=== PATIENT | female | born 1935 | race Caucasian/White ===

== ENCOUNTER 2022-06-17 16:34 | Inpatient (IN) | payer BC ==
[~2022-06-17] VITALS: Ht 165.1 cm; Wt 54.4 kg
--- NOTE | 2022-06-17 16:38 | NUR ---
BIB [facility], the ER is saturated and there are no beds. Pt is waiting in the hallway in the EMS gurney.
[2022-06-17] MEDS ORDERED: IV NORMAL SALINE 1000 ML BAG IV ONE (16:45)
[2022-06-17] MEDS ORDERED: ACETAMINOPHEN 325 MG TABLET PO ONE (16:45)
--- NOTE | 2022-06-17 16:50 | NUR ---
Per EMS patient lives alone and was found on the floor by her neighbor. Per report pt's recently and she lives alone and her neighbor checks on her. Pt does not remember what happened or how she ended up on the floor. No reported or signs of trauma noted. Pt arrives alert to her name. Pt is still waiting in the hallway in the EMS gurney as there are no beds.
--- NOTE | 2022-06-17 17:00 | NUR ---
Pt is in the ER hallway, unable to place on cont monitor.
[2022-06-17 17:05] LABS: HEMATOCRIT 43.1 % (31.2-41.9); MEAN CORPUSCULAR HEMOGLOBIN 31.4 uug (24.7-32.8); MEAN CORPUSCULAR VOLUME 94.6 fL (75.5-95.3); PLATELET COUNT (AUTO) 375 K/uL (179-408)
[2022-06-17 17:25] LABS: CARBON DIOXIDE 28 mmol/L (21-32); CHLORIDE 98 mmol/L (98-107); GLUCOSE 88 mg/dL (74-106); POTASSIUM 3.6 mmol/L (3.5-5.1); UREA NITROGEN, BLOOD 23 mg/dL (7-18)
[2022-06-17 17:32] LABS: ETHANOL < 3 MG/DL (0-0)
[2022-06-17 17:39] LABS: THYROID STIMULATING HORMONE 17.607 mIU/mL (0.358-3.740)
[2022-06-17 17:46] LABS: ALANINE AMINOTRANSFERASE 40 U/L (14-59); ALKALINE PHOSPHATASE 106 U/L (50-136); ASPARTATE AMINOTRANSFERASE 118 U/L (15-37); BILIRUBIN,DIRECT 0.6 mg/dL (0.0-0.2); BILIRUBIN,TOTAL 3.1 mg/dL (0.2-1.0); TOTAL PROTEIN, SERUM 8.4 g/dL (6.4-8.2)
[2022-06-17 18:40] LABS: ACETAMINOPHEN < 2.0 ug/mL (10-30)
[2022-06-17] MEDS ORDERED: ASPIRIN 81 MG TAB.CHEW PO ONE (20:15)
[2022-06-17] MEDS ORDERED: MORPHINE SULFATE 2 MG/1 ML DISP.SYRIN IV PRN (21:30)
[2022-06-17] MEDS ORDERED: ONDANSETRON 4 MG/2 ML VIAL IV PRN (21:30)
[2022-06-17] MEDS ORDERED: ASPIRIN 81 MG TAB.CHEW ONE (22:31)
--- NOTE | 2022-06-17 22:42 | NUR ---
Patient refused tylenol. Denies pain
--- NOTE | 2022-06-17 23:28 | NUR ---
Patient able to tolerate PO
--- NOTE | 2022-06-18 00:32 | NUR ---
per Bina TOWNSENDsupervisor last model department, no TELE beds available at the moment. Patient will stay in ER until bed is available. ER charting will be done
--- NOTE | 2022-06-18 05:15 | NUR ---
Luzmaria RN called, patient will be transfered to TELE room 308. Will call me once RN is ready for report.
--- NOTE | 2022-06-18 06:11 | NUR ---
perineal care done.
--- NOTE | 2022-06-18 06:21 | NUR ---
called 3rd floor to give report, RN will call back
[2022-06-18 07:09] LABS: HEMATOCRIT 37.8 % (31.2-41.9); MEAN CORPUSCULAR HEMOGLOBIN 31.4 uug (24.7-32.8); MEAN CORPUSCULAR VOLUME 94.1 fL (75.5-95.3); PLATELET COUNT (AUTO) 347 K/uL (179-408)
--- NOTE | 2022-06-18 07:09 | NUR ---
Pt. admitted to TELE room 308 , under care of Dr. Jhaveri Belongs List completed Luzmaria RN aware of patient's arrival
[2022-06-18 07:45] LABS: THYROID STIMULATING HORMONE 14.25 mIU/mL (0.358-3.740)
[2022-06-18 07:59] LABS: BILIRUBIN,TOTAL 2.4 mg/dL (0.2-1.0); MAGNESIUM 1.9 mg/dL (1.8-2.4); PHOSPHOROUS 3.5 mg/dL (2.5-4.9); TOTAL PROTEIN, SERUM 6.4 g/dL (6.4-8.2)
[2022-06-18 08:00] VITALS: BP 150/68
--- NOTE | 2022-06-18 08:25 | NUR ---
PT received with l habd hematoma and r leg wound to peters and rash like leisin to right lower extremity..IV is disloged and patient is confused and was trying to get oob. Pt has dry blood on her right lower extremity, Charge nurse informed. PtRemoved her gown and ask for her black and whit bouse. Reorinted patient and cleanse right leg an. #22 G saline lock placed and resume IVF as ordered. ppT REORIENTED TO PLACE AND TIME. Mitten applied to B/L hands. Safefty maintained. Bed is in lowest position.
[2022-06-18 08:27] LABS: CREATININE 0.9 mg/dL (0.6-1.3); POTASSIUM 3.3 mmol/L (3.5-5.1)
--- NOTE | 2022-06-18 09:18 | NUR ---
Critical lab value reported by lab ([facility]). Troponin [address] Patiño and no new order received.
[2022-06-18] MEDS: POTASSIUM CHLORIDE 50 ML IV SCH ×2 (10:40→12:17)
[2022-06-18] MEDS: PANTOPRAZOLE SODIUM 40 MG TABLET.DR PO SCH (10:55)
[2022-06-18 11:58] VITALS: BP 152/67
--- NOTE | 2022-06-18 12:09 | NUR ---
Pt. was admitted from ER after having fall at home. Pt. is confused at her baseline. Able to make the need known. Incontinent of both bowl and bladder. No c/o pain. compliance with the care give. No acute distress noted. Body check done and all finding recorded. Will keep monitoring the pt.
[2022-06-18] MEDS: ENOXAPARIN SODIUM 60 MG/0.6 ML DISP.SYRIN SQ SCH ×2 (14:14→23:59)
[2022-06-18 16:06] VITALS: BP 147/67
--- NOTE | 2022-06-18 16:48 | NUR ---
Contacted Rose (pt.'s step daughter) who has the document for code status and she said she will fax it to us. Notified her since we do not have the code status document we have to place the pt. on full code till we receive it. Still waiting for Rose to fax the document.
[2022-06-18 17:17] LABS: *BILIRUBIN,URIN NEGATIVE (NEGATIVE); *CLARITY,URINE CLEAR (CLEAR); *COLOR,URINE DARK YELLOW (YELLOW); *KETONES,URINE TRACE (NEGATIVE); LEUKOCYTE ESTERASE ,URINE 1+ (NEGATIVE); NITRITE, URINE POSITIVE (NEGATIVE); PH,URINE 5.5 (5.0-8.0); UGLUCOSE NEGATIVE (NEGATIVE)
[2022-06-18 17:24] LABS: *CREATININE,URINE 147.9 mg/dL (30-125); *URINE TOTAL PROTEIN RANDOM 60.1 mg/dL (<150/24HR)
[2022-06-18 17:42] LABS: *BLOOD, URINE TRACE (NEGATIVE)
[2022-06-18] MEDS: IV NS 1000 ML 1,000 ML IV PRN (18:16)
[2022-06-18 20:00] VITALS: BP 126/66
[2022-06-18] MEDS ORDERED: DOCUSATE SODIUM 250 MG CAPSULE PO SCH (21:00)
[2022-06-18] MEDS: DOCUSATE SODIUM 100 MG CAPSULE PO SCH (21:57)
[2022-06-18 22:38] LABS: BACTERIA,URINE MODERATE /HPF (NONE SEEN); SQUAMOUS EPITHELIAL CELL,UR FEW /HPF (NONE SEEN)
--- NOTE | 2022-06-18 23:30 | NUR ---
Dr Patiño informed of patient's agitation restlessness. Obtain orders to administer one time dose of Serroqul at this time.iv out BP 169/
[2022-06-18] MEDS ORDERED: QUETIAPINE FUMARATE 25 MG TABLET PO STA (23:35)
[2022-06-18] MEDS ORDERED: QUETIAPINE FUMARATE 25 MG TABLET PO ONE (23:45)
--- NOTE | 2022-06-19 00:22 | NUR ---
pt manipulated mitten and disloge iv r hand Pressure applied to site. Pt is confused and attempting to get out of bed with side rails up Seroqel administered as ordered.
--- NOTE | 2022-06-19 00:27 | NUR ---
REPEATED BP 147/69, AWAKE AND IS IN NO DIDTRESS. SPEECH IS CLEAR. PT REMAINS CONFUSED.
--- NOTE | 2022-06-19 02:42 | NUR ---
Patient is asleep. No adverse reaction from meds given this shift.
[2022-06-19 07:46] LABS: CREATININE 0.6 mg/dL (0.6-1.3)
[2022-06-19] MEDS: PANTOPRAZOLE SODIUM 40 MG TABLET.DR PO SCH (08:56)
[2022-06-19] MEDS: ENOXAPARIN SODIUM 60 MG/0.6 ML DISP.SYRIN SQ SCH (08:57)
[2022-06-19] MEDS: POTASSIUM CHLORIDE 10 MEQ, LIDOCAINE-MPF 1% 1 ML in IV DEXTROSE 5% 100 ML IV SCH ×4 (10:08→13:34)
[2022-06-19 11:20] VITALS: BP 157/77
--- NOTE | 2022-06-19 11:36 | NUR ---
SW consult requested to assess living situation. Patient is an 87-year-old female who was admitted to the hospital for NSTEMI and possible syncope. Patient is alert and oriented X2. Patient appears confused and disoriented and presents with anxious mood and congruent affect. SW spoke to the patients stepdaughter, Cristiana Wedron ([phone]) over the phone and she states the [place] [id number] [address]. Cristiana Jones ([phone]) states the patient does not have any medical equipment at home, is not driving, and recently had home health services set up. Cristiana Jones ([phone]) denies the patient has a history of substance abuse and there is no toxicology report. Cristiana Jones ([phone]) denies the patient has a history of psychiatric diagnosis. ROLF made an APS report Intake ID [id number] for self-neglect and placed a copy in the patients chart. Cristiana Jones ([phone]) states she is open to the patient going to a SNF and SW informed case operator, Nathan and charge nurse, Tete.
[2022-06-19] MEDS: CEFTRIAXONE 1 G in IV DEXTROSE 5% 50 ML IV SCH (11:46)
[2022-06-19 15:00] VITALS: BP 113/56
[2022-06-19 20:00] VITALS: BP 118/56
--- NOTE | 2022-06-19 20:20 | NUR ---
1 unit of PRBC transfused. VSS. No adverse reaction noted. Will continue to monitor.
[2022-06-19] MEDS: DOCUSATE SODIUM 100 MG CAPSULE PO SCH (20:50)
[2022-06-20] MEDS: IV NS 1000 ML 1,000 ML IV PRN (01:22)
[2022-06-20 04:00] VITALS: BP 126/62
[2022-06-20] MEDS: LEVOTHYROXINE SODIUM 75 MCG TABLET PO SCH (06:23)
[2022-06-20] MEDS: PANTOPRAZOLE SODIUM 40 MG TABLET.DR PO SCH (06:23)
[2022-06-20] MEDS: ENOXAPARIN SODIUM 40 MG/0.4 ML DISP.SYRIN SQ SCH (09:06)
[2022-06-20] MEDS: CEFTRIAXONE 1 G in IV DEXTROSE 5% 50 ML IV SCH (11:24)
--- NOTE | 2022-06-20 11:59 | NUR ---
WOUND CARE CONSULT: PT PRESENTS WITH MULTIPLE PRESSURE ULCERS (DEEP TISSUE INJURIES), PRESENT ON ADMISSION. RECOMMENDATIONS MADE FOR SKIN PROTECTION AND WOUND CARE. DISCUSSED WITH NURSING STAFF. IN AGREEMENT WITH PLAN OF CARE. Addendum: 06/20/22 at 1204 by INGRID VALLECILLO RN Amended: Links added.
[2022-06-20 12:00] VITALS: BP 136/59
[2022-06-20] MEDS ORDERED: REMEDY ESSENTIAL ZINC PASTE 113 GM TOP PRN (12:15)
[2022-06-20 16:00] VITALS: BP 135/48
[2022-06-20] MEDS: ENSURE ENLIVE (VAN) 240 ML LIQUID PO SCH (18:48)
[2022-06-20 20:00] VITALS: BP 111/57
[2022-06-20] MEDS: DOCUSATE SODIUM 100 MG CAPSULE PO SCH (20:46)
[2022-06-21 04:00] VITALS: BP 120/61
--- NOTE | 2022-06-21 04:53 | NUR ---
PT IS CONFUSED. SHE PULLED OUT HER MIDLINE ON HER RIGHT UPPER ARM. ATTEMPTED TO PLACE A LINE MULTIPLE TIMES BUT UNSUCCESSFUL. PLACED ORDER FOR MIDLINE.
[2022-06-21] MEDS: LEVOTHYROXINE SODIUM 75 MCG TABLET PO SCH (06:04)
[2022-06-21] MEDS: PANTOPRAZOLE SODIUM 40 MG TABLET.DR PO SCH (06:04)
[2022-06-21 06:42] LABS: HEMATOCRIT 31.4 % (31.2-41.9); MEAN CORPUSCULAR HEMOGLOBIN 31.3 uug (24.7-32.8); MEAN CORPUSCULAR VOLUME 95.3 fL (75.5-95.3); PLATELET COUNT (AUTO) 335 K/uL (179-408)
[2022-06-21 06:57] LABS: CREATININE 0.7 mg/dL (0.6-1.3); MAGNESIUM 1.7 mg/dL (1.8-2.4); PHOSPHOROUS 3.3 mg/dL (2.5-4.9); POTASSIUM 3.6 mmol/L (3.5-5.1)
[2022-06-21] MEDS: ENOXAPARIN SODIUM 40 MG/0.4 ML DISP.SYRIN SQ SCH (08:16)
[2022-06-21] MEDS: ENSURE ENLIVE (VAN) 240 ML LIQUID PO SCH ×3 (08:17→16:40)
[2022-06-21] MEDS ORDERED: MAGNESIUM OXIDE 400 MG TABLET PO ONE (10:00)
[2022-06-21] MEDS: CEFTRIAXONE 1 G in IV DEXTROSE 5% 50 ML IV SCH (10:02)
[2022-06-21 12:00] VITALS: BP 143/71
--- NOTE | 2022-06-21 15:49 | NUR ---
Pt. noted to be stable during the shift. Compliance with the care given. All need attended and met. Able to make the need known. No c/o pain. call light within reach. will continue monitoring the patient.
[2022-06-21 16:00] VITALS: BP 142/64
[2022-06-21] MEDS: THERAHONEY GEL 1.5 OZ TUBE TOP SCH (17:47)
--- NOTE | 2022-06-21 19:38 | NUR ---
Received patient comfortably in bed. AAOx1. Confused but is cooperative and follows plan of care. No signs of distress or c/o pain at this time. Awaiting midline insertion that was ordered 06/21/22 0437. Received instructions to pause IV medications/fluids, and none scheduled at this time. Comfort and safety measures enforced.
[2022-06-21 20:00] VITALS: BP 148/68
[2022-06-21] MEDS: DOCUSATE SODIUM 100 MG CAPSULE PO SCH (20:52)
[2022-06-22 02:00] VITALS: BP 140/68
[2022-06-22] MEDS: ACETAMINOPHEN 325 MG TABLET PO PRN ×2 (03:17→21:36)
[2022-06-22 04:00] VITALS: BP 137/66
[2022-06-22] MEDS: PANTOPRAZOLE SODIUM 40 MG TABLET.DR PO SCH (06:06)
[2022-06-22] MEDS: LEVOTHYROXINE SODIUM 75 MCG TABLET PO SCH (06:06)
--- NOTE | 2022-06-22 06:19 | NUR ---
Patient rested in faisal chair in the middle of the night was confused at this time, hard to follow directions. Safety enforced. Was then moved back to bed to rest and was not in any signs of distress or c/o pain at this time. Comfort measures maintained.
[2022-06-22] MEDS: ENSURE ENLIVE (VAN) 240 ML LIQUID PO SCH ×3 (08:07→16:28)
[2022-06-22] MEDS: ENOXAPARIN SODIUM 40 MG/0.4 ML DISP.SYRIN SQ SCH (08:08)
[2022-06-22] MEDS: THERAHONEY GEL 1.5 OZ TUBE TOP SCH (09:25)
[2022-06-22] MEDS: CEFTRIAXONE 1 G in IV DEXTROSE 5% 50 ML IV SCH (11:30)
[2022-06-22 11:33] VITALS: BP 118/70
[2022-06-22] MEDS: IV NS 1000 ML 1,000 ML IV PRN (11:35)
[2022-06-22] MEDS ORDERED: MAGNESIUM OXIDE 400 MG TABLET PO ONE (14:00)
[2022-06-22] MEDS: CEphaleXIN 500 MG CAPSULE PO SCH ×2 (16:28→21:36)
[2022-06-22 16:33] VITALS: BP 133/61
[2022-06-22 20:00] VITALS: BP 125/65
[2022-06-22] MEDS: DOCUSATE SODIUM 100 MG CAPSULE PO SCH (21:36)
[2022-06-23] VITALS: BP 118/70
[2022-06-23 04:00] VITALS: BP 120/68
[2022-06-23 04:14] VITALS: BP 11/60
[2022-06-23] MEDS: LEVOTHYROXINE SODIUM 75 MCG TABLET PO SCH (06:18)
[2022-06-23] MEDS: PANTOPRAZOLE SODIUM 40 MG TABLET.DR PO SCH (06:18)
[2022-06-23 07:48] LABS: HEMATOCRIT 29.7 % (31.2-41.9); MEAN CORPUSCULAR HEMOGLOBIN 31.5 uug (24.7-32.8); MEAN CORPUSCULAR VOLUME 94.8 fL (75.5-95.3); PLATELET COUNT (AUTO) 332 K/uL (179-408)
[2022-06-23] MEDS: ENOXAPARIN SODIUM 40 MG/0.4 ML DISP.SYRIN SQ SCH (08:09)
[2022-06-23] MEDS: CEphaleXIN 500 MG CAPSULE PO SCH ×4 (08:09→20:03)
[2022-06-23] MEDS: ENSURE ENLIVE (VAN) 240 ML LIQUID PO SCH ×3 (08:10→16:27)
[2022-06-23 08:13] LABS: CREATININE 0.6 mg/dL (0.6-1.3); PHOSPHOROUS 3.7 mg/dL (2.5-4.9); POTASSIUM 3.4 mmol/L (3.5-5.1)
[2022-06-23] MEDS: THERAHONEY GEL 1.5 OZ TUBE TOP SCH (08:52)
[2022-06-23] MEDS ORDERED: POTASSIUM CHLORIDE 20 MEQ TAB.PRT.SR PO ONE (11:00)
[2022-06-23 11:53] VITALS: BP 136/59
[2022-06-23 16:30] VITALS: BP 138/58
[2022-06-23] MEDS ORDERED: LEVO75TA7 PO (19:11)
[2022-06-23] MEDS ORDERED: CEPH500C2 PO (19:11)
[2022-06-23 19:47] VITALS: BP 120/48
[2022-06-23] MEDS: DOCUSATE SODIUM 100 MG CAPSULE PO SCH (20:03)
[2022-06-24 05:03] VITALS: BP 130/68
[2022-06-24] MEDS: LEVOTHYROXINE SODIUM 75 MCG TABLET PO SCH (06:02)
[2022-06-24] MEDS: PANTOPRAZOLE SODIUM 40 MG TABLET.DR PO SCH (06:02)
[2022-06-24 08:14] LABS: CREATININE 0.7 mg/dL (0.6-1.3); POTASSIUM 3.9 mmol/L (3.5-5.1)
[2022-06-24] MEDS: CEphaleXIN 500 MG CAPSULE PO SCH ×4 (09:45→20:45)
[2022-06-24] MEDS: ENOXAPARIN SODIUM 40 MG/0.4 ML DISP.SYRIN SQ SCH (09:46)
[2022-06-24] MEDS: ENSURE ENLIVE (VAN) 240 ML LIQUID PO SCH ×3 (09:47→17:20)
[2022-06-24] MEDS: THERAHONEY GEL 1.5 OZ TUBE TOP SCH (09:48)
--- NOTE | 2022-06-24 11:30 | NUR ---
Received report from Keyon TOWNSEND.
[2022-06-24 12:00] VITALS: BP 146/71
[2022-06-24 16:00] VITALS: BP 152/70
[2022-06-24 20:17] VITALS: BP 137/62
[2022-06-24] MEDS: DOCUSATE SODIUM 100 MG CAPSULE PO SCH (20:45)
[2022-06-25] VITALS: BP 142/68
[2022-06-25 04:40] VITALS: BP 161/78
[2022-06-25] MEDS: LEVOTHYROXINE SODIUM 75 MCG TABLET PO SCH (06:05)
[2022-06-25] MEDS: PANTOPRAZOLE SODIUM 40 MG TABLET.DR PO SCH (06:05)
[2022-06-25] MEDS: CEphaleXIN 500 MG CAPSULE PO SCH ×2 (09:25→13:23)
[2022-06-25] MEDS: ENSURE ENLIVE (VAN) 240 ML LIQUID PO SCH ×3 (09:25→17:06)
[2022-06-25] MEDS: ENOXAPARIN SODIUM 40 MG/0.4 ML DISP.SYRIN SQ SCH (09:28)
[2022-06-25] MEDS: THERAHONEY GEL 1.5 OZ TUBE TOP SCH (10:42)
--- NOTE | 2022-06-25 19:05 | NUR ---
0730-Rec'd patient in bed, awake, alert, verbally communicative, intermittent confusion/forgetful, reality orientation provided as needed. No physical or respiratory distress noted. Safety precautions in place and call light at reach. 0900-Scheduled/due medication administered as ordered with no ASE noted. Oral fluids taken well; PT in the unit and patient OOB and ambulating ad gelacio in unit with therapist assist. No c/o any discomfort, patient actively participating in therapy. 1800-Patient tolerated meals well, no c/o GI discomfort, incontinent and continent. Assisted to the restroom as needed; perineal care provided as needed. Sacral wound treatment done at this time. No s/s of bleeding, drainage noted. Patient aaron. well w/o c/o pain. All needs anticipated and met. Endorsed to incoming relieving NOC RN.
--- NOTE | 2022-06-25 19:21 | NUR ---
Patient was seen by food safety specialist (Vandana) with orders for a serial debridement to sacrum.
[2022-06-25] MEDS: DOCUSATE SODIUM 100 MG CAPSULE PO SCH (21:45)
[2022-06-25 22:00] VITALS: BP 143/68
[2022-06-26 05:00] VITALS: BP 148/73
[2022-06-26] MEDS: LEVOTHYROXINE SODIUM 75 MCG TABLET PO SCH (05:28)
[2022-06-26] MEDS: PANTOPRAZOLE SODIUM 40 MG TABLET.DR PO SCH (05:28)
--- NOTE | 2022-06-26 08:00 | NUR ---
Awake, alert, oriented x 2, pleasant, cooperative with care. Independent with eating meals.
[2022-06-26] MEDS: ENSURE ENLIVE (VAN) 240 ML LIQUID PO SCH ×3 (09:02→17:33)
[2022-06-26] MEDS: THERAHONEY GEL 1.5 OZ TUBE TOP SCH (09:02)
[2022-06-26] MEDS: ENOXAPARIN SODIUM 40 MG/0.4 ML DISP.SYRIN SQ SCH (09:03)
--- NOTE | 2022-06-26 09:30 | NUR ---
Assisted out of by PT, ambulated in the hallway with FWJeniffer
[2022-06-26 12:00] VITALS: BP 138/59
--- NOTE | 2022-06-26 12:49 | NUR ---
Deann Jones, seen patient spoke with family for plan of serial debridement of sacrum, consent signed via telephone.
--- NOTE | 2022-06-26 15:00 | NUR ---
Wound care done as ordered. Repositioned comfortably.
[2022-06-26 16:00] VITALS: BP 127/54
--- NOTE | 2022-06-26 17:56 | NUR ---
Eating fairly. Repositioned in bed comfortably
[2022-06-26 20:00] VITALS: BP 118/55
[2022-06-26] MEDS: DOCUSATE SODIUM 100 MG CAPSULE PO SCH (21:02)
[2022-06-27] MEDS: PANTOPRAZOLE SODIUM 40 MG TABLET.DR PO SCH (06:36)
[2022-06-27] MEDS: LEVOTHYROXINE SODIUM 75 MCG TABLET PO SCH (06:37)
[2022-06-27 08:02] VITALS: BP 152/69
[2022-06-27] MEDS: ENOXAPARIN SODIUM 40 MG/0.4 ML DISP.SYRIN SQ SCH (08:49)
[2022-06-27] MEDS: ENSURE ENLIVE (VAN) 240 ML LIQUID PO SCH ×3 (08:50→17:05)
[2022-06-27] MEDS: THERAHONEY GEL 1.5 OZ TUBE TOP SCH (08:51)
[2022-06-27 11:30] VITALS: BP 158/65
--- NOTE | 2022-06-27 12:35 | NUR ---
WOUND CARE CONSULT: PT SEEN FOR RASH TO PERINEUM/PUBIC AREA AND TO BACK. RECOMMENDATIONS MADE FOR SKIN CARE AND PROTECTION. DISCUSSED WITH NURSING STAFF AND SURGICAL P.A. CURRENTLY ON CASE. MD IN AGREEMENT WITH PLAN OF CARE.
[2022-06-27 15:13] VITALS: BP 142/62
--- NOTE | 2022-06-27 16:12 | NUR ---
DENIES PAIN. DRESSING CHANGED TO SACRAL WOUND, TOLERATED PROCEDURE WELL. NON COMPLIANT WITH Q2 HOURS TURNING. PATIENT AMBULATES WITH X1 ASSIST TO BATHROOM WITH WALKER, GAIT STEADY.
[2022-06-27] MEDS: CLOTRIMAZOLE 1% CREAM 30 GM TUBE TOP SCH (17:07)
[2022-06-27 20:00] VITALS: BP 145/77
[2022-06-27] MEDS: DOCUSATE SODIUM 100 MG CAPSULE PO SCH (21:31)
--- NOTE | 2022-06-28 02:46 | NUR ---
Patient recieved from 2nd floor nurse. Patient in room 318. Awake ,alert,and oriented 1 to 2. Patient confused. No acute distress noted. Resting in bed. Up to bathroom with assistance. Side rails up x3. Bed alarm on. Report given to floor nurse padmaja ,at 0245 am.
[2022-06-28 04:35] VITALS: BP 143/77
[2022-06-28] MEDS: PANTOPRAZOLE SODIUM 40 MG TABLET.DR PO SCH (06:45)
[2022-06-28] MEDS: LEVOTHYROXINE SODIUM 75 MCG TABLET PO SCH (06:45)
[2022-06-28] MEDS: THERAHONEY GEL 1.5 OZ TUBE TOP SCH (09:21)
[2022-06-28] MEDS: CLOTRIMAZOLE 1% CREAM 30 GM TUBE TOP SCH ×2 (09:21→17:24)
[2022-06-28] MEDS: ENSURE ENLIVE (VAN) 240 ML LIQUID PO SCH ×3 (09:21→17:24)
[2022-06-28 11:27] VITALS: BP 148/50
[2022-06-28 15:46] VITALS: BP 158/60
--- NOTE | 2022-06-28 20:00 | NUR ---
Patient resting quietly in bed. No acute distress noted. Awake ,alert ,and oriented x 2. Room air. Abdomen soft with + bowel sounds. Patient confused. No IV access noted. Will continue to monitor.
[2022-06-28 20:10] VITALS: BP 150/69
[2022-06-28] MEDS: DOCUSATE SODIUM 100 MG CAPSULE PO SCH (20:35)
--- NOTE | 2022-06-28 23:00 | NUR ---
8- Received patient from another RN at the charged nurse request.PATIENT IN BED, AWAKE, A/Ox2, VERBALIZES NEEDS AND FOLLOWS DIRECTIONS. NO RESPIRATORY DISTRESS NOTED.SAFETY MEASURES AND CALL LIGHT AT REACH, bed at lowest position, wheels lock, and two side rails up, bed alarm on. ORAL FLUIDS OFFERED tolerated AND TAKEN WELL. Will continue to monitor throughout the shift. 0100- The patient is asleep. The patient has no signs of distress, or sob.Will continue to monitor throughout the shift. 0300- The patient requests extra pillows and blankets. Items are given to the patient. The patient has no sob or complains of pain. Will continue to monitor throughout the shift.
--- NOTE | 2022-06-28 23:00 | NUR ---
Report given to recieving nurse.
[2022-06-29 04:44] VITALS: BP 133/73
[2022-06-29] MEDS: LEVOTHYROXINE SODIUM 75 MCG TABLET PO SCH (06:33)
[2022-06-29] MEDS: PANTOPRAZOLE SODIUM 40 MG TABLET.DR PO SCH (06:33)
[2022-06-29] MEDS: THERAHONEY GEL 1.5 OZ TUBE TOP SCH (09:18)
[2022-06-29] MEDS: CLOTRIMAZOLE 1% CREAM 30 GM TUBE TOP SCH ×2 (09:18→17:10)
[2022-06-29] MEDS: ENSURE ENLIVE (VAN) 240 ML LIQUID PO SCH ×3 (09:19→17:10)
--- NOTE | 2022-06-29 10:04 | NUR ---
08549-CXC'D PATIENT IN BED, ASLEEP, ON R/A, NO RESPIRATORY DISTRESS NOTED. BED AT LOW POSITION WITH ALARM IN FUNCTION ORDER, CALL LIGHT AT REACH. 0900-ASSISTED PATIENT TO USE THE RESTROOM AND VOIDED WELL, NO C/O BLADDER DISCOMFORT AND BACK TO BED., SET UP WITH MEAL TRAY/BREAKFAST WITH SUPERVISION AND ASSIST NEEDED.
[2022-06-29 11:36] VITALS: BP 152/67
--- NOTE | 2022-06-29 11:47 | NUR ---
1131-PATIENT WAS EVAL. BY SILVINA DICKENSMCC-DARLING LEVI: [id number] [facility] [address]. TEL : F ., PER DARLING Lopes. PATIENT'S FAMILY HAD SENT HER TO EVAL. HER. CONFIRMED WITH CELIA ([facility]) RAVINDRA SHAVER TO PERMIT DARLING TO EVAL PATIENT. POST EVAL. PER DARLING, "YES WE CAN TAKE THE PATIENT"
[2022-06-29 15:21] VITALS: BP 139/89
--- NOTE | 2022-06-29 19:25 | NUR ---
DRESSING TO SACRUM WOUND CHANGED, NO BLEEDING OR DRAINAGE NOTED. PATIENT DENIED ANY PAIN. PATIENT ABLE TO USE TOILET DURING SHIFT AND CONTINENT, HAD A LARGE BM TODAY. CARE PROVIDED AT ROUTINE INTERVALS, ALL NEEDS ANTICIPATED AND MET.
[2022-06-29 20:00] VITALS: BP 138/60
[2022-06-29] MEDS: DOCUSATE SODIUM 100 MG CAPSULE PO SCH (21:00)
[2022-06-30] VITALS: BP 130/78
[2022-06-30 04:00] VITALS: BP 132/70
[2022-06-30] MEDS: LEVOTHYROXINE SODIUM 75 MCG TABLET PO SCH (06:13)
[2022-06-30] MEDS: PANTOPRAZOLE SODIUM 40 MG TABLET.DR PO SCH (06:13)
--- NOTE | 2022-06-30 07:39 | NUR ---
SHIFT NOTE: PT IS UP TO BATHROOM WITH ASSIST PT SOILED LINEN ALONG WITH GOWN PATIENT ASSISTED TO BATHROOM AND GIVEN CLEAN GOWN. MEDICATION GIVEN ORDERED NO SIGNS OF RESPIRATORY DISTRESS NOTED. FALL AND SAFETY PRECAUTION MAINTAINED THROUGHOUT THE SHIFT. PT ASSISTED BACK IN BED.
--- NOTE | 2022-06-30 07:52 | NUR ---
Awake, alert, oriented 3. Denies discomfort at this time. Call light with in reach, bed alarm on
[2022-06-30] MEDS: ENSURE ENLIVE (VAN) 240 ML LIQUID PO SCH ×3 (08:47→17:41)
[2022-06-30] MEDS: CLOTRIMAZOLE 1% CREAM 30 GM TUBE TOP SCH ×2 (08:48→17:43)
[2022-06-30] MEDS: THERAHONEY GEL 1.5 OZ TUBE TOP SCH (08:48)
--- NOTE | 2022-06-30 10:00 | NUR ---
Bed bath done. Wound care done as ordered.
[2022-06-30 11:57] VITALS: BP 149/68
--- NOTE | 2022-06-30 15:00 | NUR ---
OOB with PT
--- NOTE | 2022-06-30 16:30 | NUR ---
Dressed up and and wants to get out, redirected. Bed alarm on
[2022-06-30 16:54] VITALS: BP 144/64
--- NOTE | 2022-06-30 18:09 | NUR ---
Personnel from [facility], came and evaluated patient, spoke with Yayo STILL With fair appetite. Family at bedside
--- NOTE | 2022-06-30 19:30 | NUR ---
Patient awake, no sob no chest pain, room air sat 94%, no complain of pain, no diarrhea, ambulate with walker, stand by assist, no compplain of pain, cont to monitor.
[2022-06-30] MEDS: DOCUSATE SODIUM 100 MG CAPSULE PO SCH (20:40)
[2022-06-30 21:10] VITALS: BP 116/53
--- NOTE | 2022-07-01 04:16 | NUR ---
Patient asleep but arousable, goes to the toilet for bladder eliminations, prefer to wear street clothingl, stand by assist, on room air, sat wnl, cont to monitor.
[2022-07-01 04:25] VITALS: BP 135/57
[2022-07-01] MEDS: PANTOPRAZOLE SODIUM 40 MG TABLET.DR PO SCH (06:01)
[2022-07-01] MEDS: LEVOTHYROXINE SODIUM 75 MCG TABLET PO SCH (06:01)
[2022-07-01] MEDS: ENSURE ENLIVE (VAN) 240 ML LIQUID PO SCH ×3 (08:20→16:27)
[2022-07-01] MEDS: THERAHONEY GEL 1.5 OZ TUBE TOP SCH (08:21)
[2022-07-01] MEDS: CLOTRIMAZOLE 1% CREAM 30 GM TUBE TOP SCH ×2 (08:21→16:27)
[2022-07-01 12:07] VITALS: BP 137/60
[2022-07-01 16:27] VITALS: BP 150/71
[2022-07-01 20:44] VITALS: BP 125/51
[2022-07-01] MEDS: DOCUSATE SODIUM 100 MG CAPSULE PO SCH (21:00)
[2022-07-02 04:25] VITALS: BP 117/50
[2022-07-02] MEDS: PANTOPRAZOLE SODIUM 40 MG TABLET.DR PO SCH (06:34)
[2022-07-02] MEDS: LEVOTHYROXINE SODIUM 75 MCG TABLET PO SCH (06:34)
--- NOTE | 2022-07-02 08:00 | NUR ---
resting in bed, oriented x 3, denies of any discomfort, breakfast served with good appetite, fall precautions observed
[2022-07-02] MEDS: ENSURE ENLIVE (VAN) 240 ML LIQUID PO SCH ×3 (09:15→17:13)
[2022-07-02] MEDS: THERAHONEY GEL 1.5 OZ TUBE TOP SCH (09:17)
[2022-07-02] MEDS: CLOTRIMAZOLE 1% CREAM 30 GM TUBE TOP SCH ×2 (09:17→17:14)
--- NOTE | 2022-07-02 11:30 | NUR ---
seen by hospitalist
[2022-07-02 11:39] VITALS: BP 144/67
[2022-07-02 16:32] VITALS: BP 170/86
--- NOTE | 2022-07-02 18:00 | NUR ---
bp 170/86- informed L Brittney [employer]ACTICAL MINISTRIES PROFESSOR with order
[2022-07-02] MEDS: hydrALAZINE HCL 10 MG TABLET PO PRN (18:15)
--- NOTE | 2022-07-02 18:39 | NUR ---
no distress noted, all needs attended and met, call light within reach, assisted to BR with FWW- voided qs, fall precautions observed
[2022-07-02 20:00] VITALS: BP 119/40
[2022-07-02] MEDS: DOCUSATE SODIUM 100 MG CAPSULE PO SCH (20:22)
[2022-07-03 04:00] VITALS: BP 122/52
[2022-07-03] MEDS: LEVOTHYROXINE SODIUM 75 MCG TABLET PO SCH (06:02)
[2022-07-03] MEDS: PANTOPRAZOLE SODIUM 40 MG TABLET.DR PO SCH (06:02)
--- NOTE | 2022-07-03 07:14 | NUR ---
WOUND CARE FOLLOW UP: PT SEEN FOR RE-EVALUATION OF SACRAL WOUND WHICH WAS PRESENT ON ADMISSION DEEP TISSUE INJURY IN EVOLUTION. WOUND HAS NOW FULLY EVOLVED TO STAGE 3 PRESSURE ULCER AND WAS DEBRIDED BY SURGICAL TEAM. SACRAL WOUND IS 2.5CM X 2CM X 0.2CM AND IS RED/PINK IN COLOR WITH SCANT SEROUS DRAINAGE. NO ODOR NOTED. PT IS VERY THIN AND BONY. RECOMMEND CONTINUE PRESENT TREATMENT OF THERAHONEY AND OPTIFOAM SACRAL DRESSING WITH OFFLOADING. DISCUSSED WITH SURGICAL TEAM AND NURSING STAFF. IN AGREEMENT WITH PLAN OF CARE. Addendum: 07/03/22 at 0716 by INGIRD VALLECILLO RN Amended: Links added.
[2022-07-03] MEDS: ENSURE ENLIVE (VAN) 240 ML LIQUID PO SCH ×3 (09:00→17:28)
[2022-07-03] MEDS: CLOTRIMAZOLE 1% CREAM 30 GM TUBE TOP SCH ×2 (10:31→17:28)
[2022-07-03] MEDS: THERAHONEY GEL 1.5 OZ TUBE TOP SCH (10:32)
[2022-07-03 11:01] VITALS: BP 145/62
[2022-07-03 15:24] VITALS: BP 145/76
[2022-07-03 17:03] VITALS: BP 175/80
[2022-07-03] MEDS: hydrALAZINE HCL 10 MG TABLET PO PRN (17:03)
--- NOTE | 2022-07-03 18:45 | NUR ---
SHIFT NOTE: RECEIVED PT IN BED INQUIRING ABOUT DISCHARGE PT IS ALERT AND ORIENTED WITH PERIOD OF CONFUSION AMBULANCE CAME TO TAKE PT TO [facility] BUT AFTERWARDS HAD TO LEAVE AND ANOTHER ONE CAME B/P IS 162/64 PT WAS GIVEN HYDRALAZINE ORDERED PO. PT WAS GIVEN A MASK ONCE LEAVING PT LEFT AT 1810 ACCOMPANIED BY EMT NO SIGNS OF RESPIRATORY NOTED.
== END 2022-07-03 18:10 | DRG 463 ==
LOC: ER 16:34 → TELE3 18:52 → MEDSURG3 06-19 10:39 → MED 06-24 11:05 → MEDSURG3 06-27 18:38
PROVIDERS: ADMIT Nurse Practitioner Acute Care; ATTEND Registered Nurse
PROC: 05HY33Z Insertion of Infusion Device into Upper Vein, Percutaneous Approach (ICD-10-PCS; 2022-06-19)
PROC: 0JB70ZZ Excision of Back Subcutaneous Tissue and Fascia, Open Approach (ICD-10-PCS; principal; 2022-06-30)
DX: M62.82 Rhabdomyolysis (principal); G93.41 Metabolic encephalopathy; L89.153 Pressure ulcer of sacral region, stage 3; I21.A1 Myocardial infarction type 2; N39.0 Urinary tract infection, site not specified; N17.9 Acute kidney failure, unspecified; E44.0 Moderate protein-calorie malnutrition; D64.9 Anemia, unspecified; E03.9 Hypothyroidism, unspecified; E78.5 Hyperlipidemia, unspecified; E87.6 Hypokalemia; E88.09 Other disorders of plasma-protein metabolism, not elsewhere classified; R32 Unspecified urinary incontinence; R55 Syncope and collapse; B96.20 Unspecified Escherichia coli [E. coli] as the cause of diseases classified elsewhere; F10.20 Alcohol dependence, uncomplicated; Z68.20 Body mass index [BMI] 20.0-20.9, adult; Z20.822 Contact with and (suspected) exposure to COVID-19; W01.0XXA Fall on same level from slipping, tripping and stumbling without subsequent striking against object, initial encounter; Y93.9 Activity, unspecified; Y92.009 Unspecified place in unspecified non-institutional (private) residence as the place of occurrence of the external cause
CPT/HCPCS: 36415; 70450; 71045; 72170; 73502; 83605; 83735; 84100; 84156; 84300; 84443; 84484; 85025; 87040; 93005; 93307; A4663; A6209; A6213; C1758; G0378; G0480; J0696; J1650; J2001; J2270; J2405; J3480; J7040